=== PATIENT | male | born 1970 | race Caucasian/White ===

== ENCOUNTER 2024-07-29 02:45 | Emergency (ER) | payer SELFPAY ==
[2024-07-29 02:45] VITALS: BP 155/95; PULSE 118; RESP 17; TEMP 39.7; O2SAT 93
--- NOTE | 2024-07-29 02:55 | PC.NURSE ---
ERP aware of pt's vital signs. No new orders.
--- NOTE | 2024-07-29 03:29 | ED.URI ---
HPI - URI/Sore Throat General Chief Complaint: Upper Respiratory Infection Stated Complaint: flu like symptoms, hip pain Time Seen by Provider: 07/29/24 03:04 Source: patient and family Mode of arrival: ambulatory Limitations: no limitations History of Present Illness HPI Narrative: this is a 53-year-old male presents with a 2 day history of cough congestion fever with no shortness of breath does have some coarse breath sounds with no chest pain no nausea vomiting or abdominal pain. MD elicited complaint: fever, cough and nasal congestion Onset (ago): day(s) Consistency: constant Severity: moderate Related Data Home Medications ?Medication ?Instructions ?Recorded ?Confirmed ?Last Taken ?Type No Home Medications 07/29/24 07/29/24 Unknown History Allergies Allergy/AdvReac Type Severity Reaction Status Date / Time Penicillins Allergy Unknown Verified 07/29/24 03:31 Review of Systems Review of Systems: All systems reviewed & are unremarkable except as noted in HPI and below PMFSH Past Medical History Medical History Patient denies medical problems Exam Const: General: no acute distress Nutritional Appearance: well nourished Orientation/consciousness: patient oriented x3 Limitations: no limitations HENMT: Head: normal to inspection Eyes: Conjunctivae: conjunctivae normal Chest: Chest palpation & inspection: normal inspection of the chest Resp: Effort & Inspection: normal respiratory effort Auscultation: clear to auscultation bilaterally Cardio: Rate: regular rate Rhythm: regular rhythm GI: GI Palp: Yes Soft to palpation Skin: General skin exam: normal color Rashes: no rashes Course Course Emergency Course: patient received Tylenol 650mg, and COVID RSV influenza performed and reviewed. MDM - URI/Sore Throat Lab Data Labs: Lab Results 07/29/24 Range/Units 03:14 Influenza A (RT-PCR) Pending Influenza B (RT-PCR) Pending RSV (RT-PCR) Pending SARS-CoV-2 RNA (RT-PCR) Pending Critical Care Time Critical Care Time Critical Care Time: No Discharge Plan Discharge Clinical Impression: Influenza Patient Disposition: Home, Self-Care Condition: Stable Instructions: Antibiotic Form, Influenza (ED) Additional Instructions: Advised patient to take Tylenol or Motrin, take medication as prescribed and follow up with primary if symptoms persist or worsen. Patient Language: [place] Prescriptions: No Action No Home Medications Follow-up/Referrals: UNKNOWN,DOCTOR [Primary Care Provider] -
[2024-07-29] MEDS: ACETAMINOPHEN 325 MG TABLET 650 MG PO (03:34)
[2024-07-29 03:59] LABS: Influenza A QL RT-PCR Positive (Negative); Influenza B QL RT-PCR Negative (Negative); RSV RNA, RT-PCR Negative (Negative); SARS-CoV-2 RNA PCR Negative (Negative)
[2024-07-29 04:04] VITALS: TEMP 38.5
[2024-07-29] MEDS: OSELTAMIVIR PHOSPHATE 75 MG CAPSULE PO (04:21)
--- NOTE | 2024-07-29 04:35 | PC.NURSE ---
ERP aware of pt's blood pressure. No new orders.
[2024-07-29 04:36] VITALS: BP 147/92; PULSE 98; RESP 17; TEMP 38.2; O2SAT 95
== END 2024-07-29 04:37 | disposition home or self-care (01) ==
PROVIDERS: Emergency Provider Emergency Medicine
DX: J11.1 Influenza due to unidentified influenza virus with other respiratory manifestations (principal); Z20.822 Contact with and (suspected) exposure to COVID-19
CPT/HCPCS: 87637; 99283; A9270